=== PATIENT | female | born 1975 | race Caucasian/White ===

== ENCOUNTER 2016-11-27 18:21 | Day surgery (SDC) | payer OTHER ==
[2016-11-27] MEDS ORDERED: HYDROcod/ACET 5/325 Prepack 6 PO ONE (19:27)
[2016-11-27] MEDS ORDERED: HYDROcod/ACET 5/325 Prepack 6 PO STA (19:27)
[2016-11-27] MEDS ORDERED: LACTATED RINGERS 1,000 ML IV ONE ×2 (20:58→22:26)
[2016-11-27] MEDS ORDERED: PROPOFOL 200 MG/20 ML VIAL IVP ONE (21:29)
[2016-11-27] MEDS ORDERED: NEOSTIGMINE 1 MG/1 ML 10 ML MDV IVP ONE (21:29)
[2016-11-27] MEDS ORDERED: GLYCOPYRROLATE 1 MG/5 ML VIAL IVP ONE (21:29)
[2016-11-27] MEDS ORDERED: MIDAZOLAM 2 MG/2 ML VIAL IVP ONE (21:29)
[2016-11-27] MEDS ORDERED: DEXAMETHASONE 4 MG/ML VIAL IVP ONE (21:29)
[2016-11-27] MEDS ORDERED: HYDROmorphone 1 MG/ML SYRINGE IVP ONE (21:29)
[2016-11-27] MEDS ORDERED: ceFAZolin 1 GM VIAL IV ONE (21:29)
[2016-11-27] MEDS ORDERED: LIDOCAINE-MPF 2% 5 ML VIAL IM ONE (21:29)
[2016-11-27] MEDS ORDERED: SUCCINYLCHOLINE 200 MG/10 ML VIAL IVP ONE (21:29)
[2016-11-27] MEDS ORDERED: METOCLOPRAMIDE 10 MG/2 ML VIAL IVP ONE (21:29)
[2016-11-27] MEDS ORDERED: ROCURONIUM 50 MG/5 ML VIAL IVP ONE (21:29)
[2016-11-27] MEDS ORDERED: ALBUTEROL 6.7 GM INHALER INH ONE (21:29)
[2016-11-27] MEDS ORDERED: KETOROLAC 30 MG/ML VIAL IVP ONE (21:29)
[2016-11-27] MEDS ORDERED: BUPIVACAINE 0.5% PF 30 ML VIAL SUBQ ONE (21:38)
[2016-11-27] MEDS ORDERED: HYDROcod/ACETAM 5/325 MG TABLET ONE (23:13)
== END 2016-11-27 19:31 | disposition home or self-care (01) ==
PROC: 0WUF0JZ Supplement Abdominal Wall with Synthetic Substitute, Open Approach (ICD-10-PCS; principal; 2016-11-27 21:00)
DX: K42.0 Umbilical hernia with obstruction, without gangrene (principal); J45.909 Unspecified asthma, uncomplicated; E66.9 Obesity, unspecified; Z68.30 Body mass index [BMI] 30.0-30.9, adult
CPT/HCPCS: 49587; 80048; 81003; 81025; 85025; 99283; 99284; A9270; C1781; J1170; J7120; J7613